=== PATIENT | female | born 1970 ===

== ENCOUNTER 2018-04-02 14:45 | Emergency (ER) | payer OTHER ==
[2018-04-02 15:00] VITALS: BMI 26.0
[2018-04-02 15:03] VITALS: BP 119/80; PULSE 100; RESP 20; TEMP 97.9; O2SAT 100
[2018-04-02] MEDS ORDERED: Emtricitabine-Tenofovir 200 mg-300 mg Tab PO STA ×3 (15:16→16:05)
[2018-04-02] MEDS ORDERED: Emtricitabine-Tenofovir 200 mg-300 mg Tab PO NR (15:30)
--- NOTE | 2018-04-02 15:43 | C.PDOC ---
History Of Present Illness Patient came to ED for evaluation after she accidentally had a needlestick while taking blood test from the patient. The source patient came to the hospital for her 1st blood work. She is 13 weeks with unknown HIV and Hepatitis status. The injured patient has a puncture wound of the right 3rd finger. Time Seen by Provider: 04/02/18 15:05 Chief Complaint (Nursing): Medical Clearance History Per: Patient Past Medical History Reviewed: Historical Data, Nursing Documentation, Vital Signs Vital Signs: Last Vital Signs Temp 97.9 F 04/02/18 14:59 Pulse 100 H 04/02/18 14:59 Resp 20 04/02/18 14:59 BP 119/80 04/02/18 14:59 Pulse Ox 100 04/02/18 14:59 Surgical History: Cholecystectomy Family History: States: No Known Family Hx - Social History Hx Alcohol Use: Yes Hx Substance Use: No - Immunization History Hx Tetanus Toxoid Vaccination: No Hx Influenza Vaccination: No Hx Pneumococcal Vaccination: No Review Of Systems Except As Marked, All Systems Reviewed And Found Negative. Physical Exam - Physical Exam Appears: Well, Non-toxic, No Acute Distress Skin: Other (right 3rd finger distal phalanx, palmar surface with puncture wound, no active bleeding, no gross contamination. ) Head: Atraumatic, Normacephalic Eye(s): bilateral: Normal Inspection Neurological/Psych: Oriented x3, Normal Speech, Normal Cognition ED Course And Treatment - Laboratory Results Result Diagrams: 04/02/18 15:53 04/02/18 15:53 O2 Sat by Pulse Oximetry: 100 Progress Note: Patient had her baseline blood work done and started PEP treatment she sts that source patient will come back to the hospital tomorrow and will be asked to get her hepatitis and HIV testing. Patient was given 2 days supply of PEP medications and was instructed [facility] with [facility] and with her PMD. Disposition - Disposition Disposition: HOME/ ROUTINE Disposition Time: 16:46 Condition: STABLE Additional Instructions: Follow up with your PMD and [facility] within 1-2 days. Return to ED if feel worse. Prescriptions: Dolutegravir Sodium [Tivicay] 50 mg PO DAILY 2 Days #2 tab Emtricitabine/Tenofovir (Tdf) [Truvada 200 mg-300 mg Tablet] 1 each PO DAILY 2 Days #2 tablet Instructions: Wound Care (DC) Forms: [facility] ([place]) - Clinical Impression Clinical Impression: Needle stick injury of finger
[2018-04-02 16:00] LABS: BASO # 0.1 K/uL (0.0-0.2); BASO % 1.4 % (0.0-2.0); EOS # 0.2 K/uL (0.0-0.7); EOS % 2.7 % (0.0-4.0); HEMOGLOBIN 13.8 g/dL (11.0-16.0); LYMPH # 1.9 K/uL (1.0-4.3); LYMPH % 29.5 % (20.0-40.0); MEAN CELL VOLUME 83.3 fL (81.0-99.0); MEAN CORPUSCULAR HEMOGLOBIN 27.8 pg (27.0-31.0); MEAN CORPUSCULAR HGB CONC 33.3 g/dL (33.0-37.0); MEAN PLATELET VOLUME 6.4 fL (7.2-11.7); MONO # 0.6 K/uL (0.0-0.8); MONO % 8.7 % (0.0-10.0); NEUT # 3.7 K/uL (1.8-7.0); NEUT % 57.7 % (50.0-75.0); RBC 4.96 Mil/uL (3.80-5.20); RED CELL DISTRIBUTION WIDTH 14.4 % (11.5-14.5); WHITE BLOOD COUNT 6.5 K/uL (4.8-10.8)
[2018-04-02 16:11] LABS: SQUAMOUS EPITHIAL 2 /hpf (0-5); URINE BACTERIA RARE (<OCC); URINE BILIRUBIN NEGATIVE (NEGATIVE); URINE BLOOD 3+ (NEGATIVE); URINE CLARITY Clear (Clear); URINE COLOR Yellow (YELLOW); URINE GLUCOSE (UA) NORMAL (Normal); URINE LEUKOCYTE ESTERASE NEG Leu/uL (Negative); URINE PROTEIN NEGATIVE (NEGATIVE); URINE UROBILINOGEN NORMAL mg/dL (0.2-1.0)
[2018-04-02 16:15] LABS: HCG,QUALITATIVE URINE NEGATIVE (NEGATIVE)
[2018-04-02 16:18] LABS: ALB/GLOB RATIO 1.1 (1.0-2.1); ALT/SGPT 42 U/L (9-52); AMYLASE 91 U/L (30-110); AST/SGOT 38 U/L (14-36); BLOOD UREA NITROGEN 14 mg/dL (7-17); CALCIUM 9.8 mg/dl (8.6-10.4); GFR NON-AFRICAN AMERICAN > 60
[2018-04-02 16:45] LABS: HEPATITIS B SURFACE AG Negative (NEGATIVE)
[2018-04-02 16:50] LABS: HEPATITIS A IGM NEGATIVE (NEGATIVE); HEPATITIS B CORE AB NEGATIVE (NEGATIVE)
[2018-04-02 17:02] LABS: HEPATITIS C ANTIBODY NEGATIVE (NEGATIVE)
[2018-04-03] MEDS ORDERED: Emtricitabine-Tenofovir 200 mg-300 mg Tab PO NR (16:06)
== END 2018-04-02 16:57 | disposition home or self-care (01) ==
LOC: C.ER 14:45
DX: S61.232A Puncture wound without foreign body of right middle finger without damage to nail, initial encounter (principal); W46.0XXA Contact with hypodermic needle, initial encounter; Y92.239 Unspecified place in hospital as the place of occurrence of the external cause; Y99.0 Civilian activity done for income or pay

== ENCOUNTER 2018-08-29 09:22 | Outpatient (CLI) | payer OTHER | END 2018-08-29 09:23 | disposition home or self-care (01) | LOC: C.MAMMO 09:22 ==